=== PATIENT | male | born 1950 | race Caucasian/White ===

== ENCOUNTER 2018-03-08 11:41 | Emergency (ER) | payer MEDICARE ==
[~2018-03-08] VITALS: Ht 162.6 cm; Wt 58.2 kg
[2018-03-08 11:53] VITALS: BP 132/84
[2018-03-08 12:24] LABS: MICROSCOPIC AUTO
[2018-03-08 12:36] LABS: CULTURE INDICATED? YES
== END 2018-03-08 13:08 | disposition home or self-care (01) ==
LOC: ED 13:00
DX: N30.01 Acute cystitis with hematuria (principal)
CPT/HCPCS: 81001; 87077; 87086; 99284

== ENCOUNTER 2018-03-22 05:05 | Emergency (ER) | payer MEDICARE ==
[~2018-03-22] VITALS: Ht 162.6 cm; Wt 60.1 kg
[2018-03-22 05:44] LABS: CULTURE INDICATED? YES; MICROSCOPIC INDICATED
[2018-03-22 06:07] LABS: INTERNATIONAL NORMALIZED RATIO 0.97 (0.93-1.1); PROTHROMBIN TIME 10.3 Seconds (9.6-11.5)
[2018-03-22 06:08] LABS: ALANINE AMINOTRANSFERASE 130 U/L (12-78); ALBUMIN 3.6 g/dL (3.4-5.0); ANION GAP 10 mmol/L (5-15); CALCIUM 8.2 mg/dL (8.5-10.1); CHLORIDE 111 mmol/L (98-107)
[2018-03-22 06:10] LABS: ALKALINE PHOSPHATASE 73 U/L (45-117); BILIRUBIN,TOTAL 0.6 mg/dL (0.2-1.0); CREATINE KINASE, TOTAL 79 U/L (39-308); TOTAL PROTEIN 6.4 g/dL (6.4-8.2)
[2018-03-22 06:32] LABS: BASOPHILS # (AUTO) 0.05 x10^3/uL (0-0.1); BASOPHILS % (AUTO) 1 % (0-1); EOSINOPHILS # (AUTO) 0.23 x10^3/uL (0-0.4); EOSINOPHILS % (AUTO) 4 % (1-7); LYMPHOCYTES # (AUTO) 1.55 x10^3/uL (1-3.4); LYMPHOCYTES % (AUTO) 27 % (22-44); MD SCAN; MEAN CORPUSCULAR HEMOGLOBIN 32.7 pg (27.5-34.5); MEAN CORPUSCULAR HGB CONC 34.6 g/dL (33.2-36.2); MEAN CORPUSCULAR VOLUME 94.6 fL (81-97); MONOCYTES # (AUTO) 0.73 x10^3/uL (0.2-0.8); MONOCYTES % (AUTO) 13 % (2-9); NEUTROPHILS # (AUTO) 3.27 x10^3/uL (1.8-6.8); NEUTROPHILS % (AUTO) 56 % (42-75); PLATELET COUNT 179 x10^3/uL (130-400); RED BLOOD COUNT 4.72 x10^6/uL (4.38-5.82); RED CELL DISTRIBUTION WIDTH 13.6 % (9.4-14.8)
[2018-03-22 07:44] VITALS: BP 116/84
== END 2018-03-22 07:46 | disposition home or self-care (01) ==
LOC: ED 05:28
DX: N20.2 Calculus of kidney with calculus of ureter (principal); R31.9 Hematuria, unspecified; Z87.891 Personal history of nicotine dependence
CPT/HCPCS: 36415; 74176; 80053; 81001; 82550; 85025; 85610; 85730; 87086; 99284

== ENCOUNTER → 2018-07-07 | Outpatient (CLI) | payer MEDICARE ==
[~2018-07-07] MED LIST: IBUP200C8 PO; ranitidine PO; viagra PO
[2018-07-07 16:28] LABS: ANION GAP 6 mmol/L (5-15); CALCIUM 8.2 mg/dL (8.5-10.1); CHLORIDE 111 mmol/L (98-107); CREATININE 0.89 mg/dL (0.7-1.3)
[2018-07-07 16:32] LABS: PSA SCREEN 0.88 ng/mL (0.00-4.00)
[2018-07-07 16:34] LABS: MICROSCOPIC AUTO
[2018-07-07 17:00] LABS: MEAN CORPUSCULAR HEMOGLOBIN 32.1 pg (27.5-34.5); MEAN CORPUSCULAR HGB CONC 33.4 g/dL (33.2-36.2); MEAN CORPUSCULAR VOLUME 96.1 fL (81-97); MEAN PLATELET VOLUME 9.3 fL (7.4-10.4); PLATELET COUNT 220 x10^3/uL (130-400); RED BLOOD COUNT 5.38 x10^6/uL (4.38-5.82); RED CELL DISTRIBUTION WIDTH 13.9 % (9.4-14.8)
[2018-07-07 17:08] LABS: BASOPHILS # (AUTO) 0.03 x10^3/uL (0-0.1); BASOPHILS % (AUTO) 0 % (0-1); EOSINOPHILS # (AUTO) 0.13 x10^3/uL (0-0.4); EOSINOPHILS % (AUTO) 2 % (1-7); LYMPHOCYTES # (AUTO) 1.24 x10^3/uL (1-3.4); LYMPHOCYTES % (AUTO) 19 % (22-44); MONOCYTES # (AUTO) 0.54 x10^3/uL (0.2-0.8); MONOCYTES % (AUTO) 8 % (2-9); NEUTROPHILS # (AUTO) 4.63 x10^3/uL (1.8-6.8); NEUTROPHILS % (AUTO) 71 % (42-75)
[2018-07-07 17:09] LABS: MD SCAN
== END | disposition home or self-care (01) ==
LOC: STAR 14:26
PROVIDERS: ATTEND Urology
DX: Z01.818 Encounter for other preprocedural examination (principal); Z12.5 Encounter for screening for malignant neoplasm of prostate; N20.1 Calculus of ureter; Z87.891 Personal history of nicotine dependence
CPT/HCPCS: 36415; 80048; 81001; 82306; 83970; 84550; 85025; 87086; 93005; G0103

== ENCOUNTER 2018-07-15 11:53 | Day surgery (SDC) | payer MEDICARE ==
[~2018-07-15] VITALS: Ht 165.1 cm; Wt 58.3 kg
[2018-07-15] MEDS ORDERED: LACTATED RINGERS 1,000 ML IV SCH (12:19)
[2018-07-15 12:22] VITALS: BP 128/84
[2018-07-15] MEDS ORDERED: DEXAMETHASONE 4 MG/ML, 1ML ONE (12:53)
[2018-07-15] MEDS ORDERED: KETOROLAC 30 MG/1 ML ONE (12:53)
[2018-07-15] MEDS ORDERED: FENTANYL PF 100 MCG/2ML ONE ×2 (12:53→13:52)
[2018-07-15] MEDS ORDERED: FENTANYL PF 100 MCG/2ML IV PRN (14:00)
[2018-07-15] MEDS ORDERED: OXYcodone 5 MG/5 ML ORAL.SOL UDC PO PRN (14:00)
[2018-07-15] MEDS ORDERED: hydrALAzine 20 MG/ML, 1ML IV PRN (14:00)
[2018-07-15] MEDS ORDERED: HALOPERIDOL 5 MG/ML IV PRN (14:00)
[2018-07-15] MEDS ORDERED: LABETALOL 5MG/ML, 20ML IV PRN (14:00)
[2018-07-15] MEDS ORDERED: HYDROmorphone 2 MG/ML, 1ML IVPush PRN (14:00)
[2018-07-15] MEDS ORDERED: DIPHENHYDRAMINE 50 MG/ML, 1ML IVPush PRN (14:00)
[2018-07-15] MEDS ORDERED: ACETAMINOPHEN 325 MG TABLET PO PRN (14:00)
[2018-07-15] MEDS ORDERED: METOPROLOL 1 MG/ML, 5ML IV PRN (14:00)
[2018-07-15] MEDS ORDERED: PROCHLORPERAZINE 5 MG/ML, 2ML IV PRN (14:00)
[2018-07-15] MEDS ORDERED: PROMETHAZINE 25 MG/ML, 1ML IV PRN (14:00)
[2018-07-15] MEDS ORDERED: MEPERIDINE/PF 25MG/0.5ML IVPush PRN (14:00)
[2018-07-15] MEDS ORDERED: ONDANSETRON 2MG/ML, 2ML ONE (14:25)
[2018-07-15] MEDS ORDERED: PROPOFOL 10 MG/ML, 20ML ONE (14:25)
[2018-07-15] MEDS ORDERED: CEFAZOLIN 1,000 MG ONE (14:25)
[2018-07-15] MEDS ORDERED: IBUPROFEN 200 MG TABLET PO PRN (14:30)
[2018-07-15] MEDS ORDERED: OMNIPAQUE 350 MG/ML, 50 ML BOTTLE ONE (14:40)
== END 2018-07-15 17:20 | disposition home or self-care (01) ==
LOC: OUT 11:53
PROVIDERS: ATTEND Urology
DX: N13.2 Hydronephrosis with renal and ureteral calculous obstruction (principal); Z72.89 Other problems related to lifestyle; Z87.891 Personal history of nicotine dependence
CPT/HCPCS: 52356; C1758; C2617; J0690; J1100; J1885; J2405; J2704; J3010; J7120; Q9967